=== PATIENT | female | born 1980 | race Caucasian/White ===

== ENCOUNTER 2020-10-29 01:21 | Inpatient (IN) ==
[2020-10-29] MEDS ORDERED: OXYTOCIN 30 UNITS/500 ML BAG IV PRN ×2 (01:57→04:58)
[2020-10-29] MEDS ORDERED: LACTATED RINGER'S 1,000 ML IV PRN (01:57)
[2020-10-29 02:31] LABS: Hematocrit (blood only) 32.2 % (37-47); Hemoglobin 10.9 g/dL (12.0-16.0); Mean Corpuscular Hgb Conc 33.9 g/dL (32-36); Mean Corpuscular Volume 88.7 fL (80-100); Mean Platelet Volume 9.8 fL (7.4-10.4); Platelet Count 224 K/uL (130-400); RDW Coefficient of Variation 13.7 % (11.5-14.5); RDW Standard Deviation 45.1 fL (36.4-46.3); Red Blood Count 3.63 M/uL (4.2-5.4); White Blood Count 11.04 K/uL (4.8-10.8)
[2020-10-29] MEDS ORDERED: LIDOCAINE 1% LOCAL 20 ML VIAL ONE ×2 (04:34→04:36)
[2020-10-29] MEDS ORDERED: BENZOCAINE 20% AER SPR 82.5 GM CAN EXT PRN (04:58)
[2020-10-29] MEDS ORDERED: SUPERCREAM 0.870% 15 GM JAR EXT PRN (04:58)
[2020-10-29] MEDS ORDERED: DIPHTHERIA/TETANUS/PERTUSSIS 0.5 ML SYR/VIAL IM ONE (04:58)
[2020-10-29] MEDS ORDERED: bisacodyL 10 MG SUPP PR PRN (04:58)
[2020-10-29] MEDS ORDERED: HYDROCORTISONE ACETATE 25 MG SUPP PR PRN (04:58)
[2020-10-29] MEDS ORDERED: ACETAMINOPHEN W/CODEINE #3 1 TAB PO PRN (04:58)
[2020-10-29] MEDS ORDERED: oxyCODONE/ACETAMINOPHEN 5mg/325mg TAB PO PRN (04:58)
[2020-10-29] MEDS ORDERED: miSOPROStoL 100 MCG TAB PR ONE (04:58)
[2020-10-29] MEDS ORDERED: miSOPROStoL 100 MCG TAB ONE (04:59)
[2020-10-29] MEDS: IBUPROFEN 600 MG TAB PO PRN ×3 (07:47→19:45)
[2020-10-29] MEDS: DOCUSATE SODIUM 100 MG CAP PO SCH ×2 (07:47→19:45)
[2020-10-29] MEDS: PRENATAL VITAMIN 1 TAB PO SCH (07:47)
--- NOTE | 2020-10-29 10:36 | Delivery Summary ---
DATE OF OPERATION: 10/29/2020 She is 1, para 1. Blood type is O positive, group B strep negative. Due date 11/06/2020, called the office, said she thought she had ruptured membranes and was sent to the hospital. Ruptured membranes were confirmed. On admission to the hospital, she was about 4.5 cm dilated. She requested to be unmedicated by the time I eventually got around to checking her, she was fully dilated. I ruptured her membrane surgically at full dilatation. She then pushed out a live male via direct occiput anterior position over an intact perineum with about 3 pushes. was suctioned through the mouth and nose. There was a nuchal cord x1, which was easily reduced over the head. Cord was allowed to pulsate for 1 minute, then clamped, cut by the father. Cord blood was taken. With IV Pitocin running, the placenta was removed intact. Placenta looked small. Inspection of the perineum revealed a second-degree laceration, but it did go over fdc up the vagina, although towards the top it was pretty superficial. To the extent of the laceration, we elected to do a pudendal block, which I used about 15 mL of local on each side. We then used a heavy Vicryl. We found the upper extent of the vaginal laceration and placed a suture there and then with a running suture out to beyond the hymenal ring I approximated the vaginal mucosa. I then used a deep suture to approximate the bulbocavernosus muscle, 2 deep sutures to approximate the perineal body and then a perirectal deep suture to approximate the perirectal tissue sphincter was not entered. Then I used a running subcuticular Vicryl to approximate the perineal skin edges. Following this, the packs were removed. Vag exam revealed no hematoma formation. I then used 800 mcg of rectal Cytotec. At this time, I did a rectal exam. There were no stitches through the rectum. ESTIMATED BLOOD LOSS: 200 mL I attest to the content of the Intraoperative Record and any orders documented therein. Any exception s are noted below.
[2020-10-29] MEDS: ACETAMINOPHEN 325 MG TAB PO PRN ×2 (15:25→22:55)
[2020-10-30] MEDS: IBUPROFEN 600 MG TAB PO PRN ×2 (04:11→10:58)
[2020-10-30 06:20] LABS: Hemoglobin 9.4 g/dL (12.0-16.0); Mean Corpuscular Hemoglobin 30.8 pg (25-34); Mean Corpuscular Hgb Conc 33.6 g/dL (32-36); Mean Corpuscular Volume 91.8 fL (80-100); Mean Platelet Volume 9.8 fL (7.4-10.4); Platelet Count 183 K/uL (130-400); RDW Coefficient of Variation 14.3 % (11.5-14.5); RDW Standard Deviation 47.6 fL (36.4-46.3); Red Blood Count 3.05 M/uL (4.2-5.4); White Blood Count 10.83 K/uL (4.8-10.8)
[2020-10-30] MEDS: DOCUSATE SODIUM 100 MG CAP PO SCH (07:43)
[2020-10-30] MEDS: PRENATAL VITAMIN 1 TAB PO SCH (07:43)
--- NOTE | 2020-10-30 08:55 | Obstetrical Progress Note ---
Date of Service October 30, 2020 Assessment & Plan Admission and Anticipated Discharge Date Admission Date: October 29, 2020 Physical Exam Physical Exam: abdomen soft and non tender no calf tenderness ambulating well vaginal bleeding scant hgb 9.4 Results & Data ([facility]) Vital Signs (Past 12 Hours) Vital Signs Temp Pulse Resp BP Pulse Ox 10/30/20 07:44 36.7 C 74 18 110/74 97 10/30/20 04:10 36.3 C L 66 16 117/75 97 10/29/20 22:50 36.8 C 72 16 112/72 97
[2020-10-30] MEDS ORDERED: bisacodyL 5 MG TABEC PO SCH (20:00)
== END 2020-10-30 14:30 | disposition home or self-care (01) | DRG 807 ==
LOC: OPB 01:21 → 4S1 01:22 → 4S2 08:20

== ENCOUNTER 2023-07-15 10:26 | Inpatient (IN) ==
[2023-07-15] MEDS ORDERED: LACTATED RINGER'S 1,000 ML IV PRN (11:08)
[2023-07-15 11:34] LABS: Hematocrit (blood only) 32.3 % (37.0-47.0); Hemoglobin 10.8 g/dl (12.0-16.0); Mean Corpuscular Hemoglobin 30.4 pg (25.0-34.0); Mean Corpuscular Hgb Conc 33.4 g/dL (32.0-36.0); Mean Platelet Volume 10.1 fL (9.4-12.4); Platelet Count 190 K/uL (130-400); RDW Coefficient of Variation 13.7 % (11.5-14.5); Red Blood Count 3.55 M/uL (4.20-5.40); White Blood Count 11.45 K/ul (4.8-10.8)
[2023-07-15] MEDS: OXYTOCIN 30 UNITS/NSS 30 UNITS/500 ML BAG IV PRN (12:15)
[2023-07-15] MEDS: miSOPROStoL 200 MCG TAB PR ONE (12:30)
[2023-07-15] MEDS: LIDOCAINE 1% LOCAL 20 ML VIAL INFIL PRN (12:34)
[2023-07-15] MEDS ORDERED: OXYTOCIN 30 UNITS/NSS 30 UNITS/500 ML BAG IV PRN (12:41)
[2023-07-15] MEDS ORDERED: bisacodyL 10 MG SUPP PR PRN (12:41)
[2023-07-15] MEDS ORDERED: ACETAMINOPHEN W/CODEINE #3 1 TAB PO PRN (12:41)
[2023-07-15] MEDS ORDERED: oxyCODONE/ACETAMINOPHEN 5mg/325mg TAB PO PRN (12:41)
[2023-07-15] MEDS ORDERED: HYDROCORTISONE ACETATE 25 MG SUPP PR PRN (12:41)
[2023-07-15] MEDS: IBUPROFEN 600 MG TAB PO PRN (13:47)
[2023-07-15] MEDS: BENZOCAINE 20% SPRY 85 APPLN/85 GM CAN EXT PRN (13:47)
--- NOTE | 2023-07-15 14:49 | Delivery Summary ---
Vaginal Delivery Summary Date of Service July 15, 2023 Supervising Physician Co-Signing Physician Notes Patient has been followed in our office for care and delivery. Patient is a 3 para 1. 1 spontaneous AB. She was admitted in active labor at 39 weeks and 1 day gestation. The strep negative. On admission she was 5 cm dilated. She had a spontaneous unstimulated labor. She went to full dilatation and delivered a live male via direct occiput posterior position. There was a nuchal cord x 1. We were able to deliver the with a nuchal cord attached. We allowed the cord to pulse for 1 full minute. Cord was then clam ped and cut. Cord blood was taken. IV Pitocin running the placenta was removed intact. Inspection of the perineum revealed a midline superficial laceration which also involve the right labia. The defect was repaired anatomically with a continuous 2-0 Vicryl suture. Under local anesthesia. Patient was administered estimated blood loss was 200 mL. 800 mcg of rectal Cytotec.
[2023-07-15] MEDS: ACETAMINOPHEN 325 MG TAB PO PRN (17:09)
[2023-07-15] MEDS: DOCUSATE SODIUM 100 MG CAP PO SCH (21:44)
[2023-07-15] MEDS ORDERED: miSOPROStoL 200 MCG TAB ONE (23:14)
[2023-07-16] MEDS: DIPHTHER/TETAN/PERTUS Vaccine (Tdap, Adol/Adult) 0.5mL IM ONE (03:54)
[2023-07-16 06:48] LABS: Hematocrit (blood only) 30.6 % (37.0-47.0); Hemoglobin 10.4 g/dl (12.0-16.0); Mean Corpuscular Hemoglobin 30.8 pg (25.0-34.0); Mean Corpuscular Volume 90.5 fL (80.0-100.0); Mean Platelet Volume 10.7 fL (9.4-12.4); Platelet Count 173 K/uL (130-400); RDW Coefficient of Variation 13.9 % (11.5-14.5); RDW Standard Deviation 45.6 fL (36.4-46.3); Red Blood Count 3.38 M/uL (4.20-5.40); White Blood Count 11.46 K/ul (4.8-10.8)
[2023-07-16] MEDS: PRENATAL VITAMIN 1 TAB PO SCH (08:24)
--- NOTE | 2023-07-16 09:02 | Obstetrical Progress Note ---
Date of Service July 16, 2023 Assessment & Plan Admission and Anticipated Discharge Date Admission Date: July 15, 2023 Subjective abdomen soft and non tender no calf tenderness ambulating well vaginal bleeding scant hgb 10.4 Results & Data Vital Signs (Past 12 Hours) Vital Signs Temp Pulse Pulse Resp BP Pulse Ox O2 Del Method 07/16/23 07:35 36.8 C 76 18 114/73 98 Room Air 07/16/23 03:28 36.9 C 70 18 115/72 97 Room Air 07/15/23 23:10 37.2 C 70 16 112/69 98 Room Air
[2023-07-16] MEDS: bisacodyL 5 MG TABEC PO SCH (20:27)
--- NOTE | 2023-07-17 08:19 | Obstetrical Progress Note ---
Date of Service July 17, 2023 Assessment & Plan Admission and Anticipated Discharge Date Admission Date: July 15, 2023 Subjective abdomen soft and non tender no calf tenderness ambulating well vaginal bleeding scant hgb 10.0 Results & Data Vital Signs (Past 12 Hours) Vital Signs Temp Pulse Resp BP Pulse Ox O2 Del Method 07/17/23 03:00 36.7 C 63 18 114/71 96 Room Air
[2023-07-17 09:01] VITALS: BP 110/69; RESP 20; TEMP 98.4; O2SAT 97
[2023-07-17 09:15] VITALS: PULSE 68
== END 2023-07-17 11:49 | disposition home or self-care (01) | DRG 807 ==
LOC: OPB 10:26 → 4S1 10:28 → 4E2 16:32
DX: Z37.0 Single live birth; O70.0 First degree perineal laceration during delivery; Z3A.39 39 weeks gestation of pregnancy; O69.81X0 Labor and delivery complicated by cord around neck, without compression, not applicable or unspecified